=== PATIENT | female | born 1990 | race Asian ===

== ENCOUNTER → 2022-04-09 12:36 | Outpatient (CLI) | payer OTHER, MEDICAID, SELFPAY ==
[2022-04-09 14:13] LABS: HCG Quantitative /Beta subunit 30725 mIU/mL
== END ==
PROVIDERS: Referring Provider Obstetrics & Gynecology; Visit Provider Obstetrics & Gynecology
DX: N91.2 Amenorrhea, unspecified (principal)
CPT/HCPCS: 36415; 84702

== ENCOUNTER → 2022-06-01 13:44 | Outpatient (CLI) | payer OTHER, MEDICAID, SELFPAY ==
[2022-06-01 14:44] LABS: Appearance Urine UA CLEAR; Bilirubin Urine UA NEGATIVE (NEGATIVE); Color Urine UA YELLOW; Glucose Urine UA NEGATIVE (Negative); Ketones Urine UA NEGATIVE (NEGATIVE); Leukocyte Esterase Urine UA NEGATIVE (NEGATIVE); Nitrite Urine UA NEGATIVE (Negative); Occult Blood Urine UA NEGATIVE (Negative); Protein Urine UA NEGATIVE (Negative); Urobilinogen Urine UA 0.2 E.U./dL (0.2)
[2022-06-01 14:45] LABS: pH Urine UA 6.5 (4.5-8.0)
== END ==
PROVIDERS: Visit Provider Obstetrics & Gynecology
DX: Z34.81 Encounter for supervision of other normal pregnancy, first trimester (principal)
CPT/HCPCS: 81003; 87086

== ENCOUNTER → 2022-06-01 14:23 | Outpatient (CLI) | payer OTHER, MEDICAID, SELFPAY ==
[2022-06-01 16:29] LABS: Add Manual Diff / Slide Review NO; Basophils Absolute Auto 100 /uL (0-100); Basophils Percent Auto 0.8 % (0-2); Eosinophils Absolute Auto 100 /uL (0-450); Eosinophils Percent Auto 1.4 % (2-4); Hematocrit 36.4 % (36-46); Hemoglobin 12.4 g/dL (12.0-16.0); Lymphocytes Absolute Auto 800 /uL (1100-4500); Lymphocytes Percent Auto 9.7 % (25-40); Mean Corpuscular Hemoglobin 28.4 PG (26-34); Mean Corpuscular Volume 83.6 fL (80-100); Monocytes Absolute Auto 600 /uL (0-900); Monocytes Percent Auto 6.7 % (3-14); Neutrophils Absolute Auto 7100 /uL (1500-7000); Neutrophils Percent Auto 81.4 % (50-75); Platelet Count 191 X10^3/uL (150-400); Red Blood Cell Count 4.35 X10^6/uL (4.0-5.2); Red Cell Distribution Width 13.7 % (11.6-14.8); White Blood Cell Count 8.7 X10^3/uL (4.5-11.0)
[2022-06-02 06:10] LABS: Varicella IgG Antibody <135 index (Immune >165)
[2022-06-04 16:12] LABS: HIV 1 & 2 Ab/Ag 4th Gen Combo NEGATIVE (NEGATIVE); Hep C Virus Ab w/Reflex Quant NEGATIVE s/c (NEGATIVE); Hepatitis B Surface Antigen NEGATIVE s/c (NEGATIVE); Rubella Antibody IgG 20.6 IU/mL (>15)
[2022-06-18 09:45] LABS: RPR Screen REACTIVE
== END ==
PROVIDERS: Referring Provider Obstetrics & Gynecology; Visit Provider Obstetrics & Gynecology
DX: Z34.81 Encounter for supervision of other normal pregnancy, first trimester (principal)
CPT/HCPCS: 36415; 80055; 81003; 86787; 86803; 86850; 86900; 86901; 87086; 87389

== ENCOUNTER → 2022-06-30 08:45 | Outpatient (CLI) | payer OTHER, MEDICAID, SELFPAY ==
[2022-07-02 19:31] LABS: AFP Value 84.2 ng/mL (.); Gest Age on Col Date 17.6 weeks (.); Insulin Dep Diabetes No (.); OSBR Risk 1IN 987 (.); Results Report (.); Test Results *Screen Negative* (.)
== END ==
PROVIDERS: Referring Provider Obstetrics & Gynecology; Visit Provider Obstetrics & Gynecology
DX: Z34.82 Encounter for supervision of other normal pregnancy, second trimester (principal); Z3A.17 17 weeks gestation of pregnancy
CPT/HCPCS: 36415; 82105

== ENCOUNTER → 2022-07-29 12:03 | Outpatient (CLI) | payer OTHER, MEDICAID, SELFPAY ==
--- NOTE | 2022-07-29 12:04 | DI.US.S_ITS ---
PROCEDURE: US OB >= 14 WEEKS FETUS INDICATIONS: ANATOMY OUTSIDE/PRIOR DATING DATA: Last menstrual period (LMP): 02/27/2022. LMP-based estimated date of delivery (YELITZA): 12/04/2022. First dating scan (date and location): 05/05/2022. Estimated date of delivery (YELITZA) from first dating scan: 12/04/2022. TECHNIQUE: Real-time scanning was performed of the fetus, with image documentation and biometric measurements. Endovaginal scanning: Not performed. COMPARISON: None. FINDINGS: General: A single living intrauterine gestation is present. Presentation: Transverse. Placenta: Placental position is anterior , without previa. Amniotic fluid index: 19.6 cm, normal range is 5-24 cm. Single deepest vertical pocket is 6.5 cm. heart rate: 157 beats per minute. Maternal cervical canal: 3.5 cm long. Normal lower limit is 2.5 cm. biometrics: Biparietal diameter: 5.1 centimeters, 21 weeks 2 days Head circumference: 18.8 centimeters, 21 weeks 1 day Abdominal circumference: 16.7 centimeters, 21 weeks 5 days Femur length: 3.7 centimeters, 21 weeks 5 days estimated gestational age: 21 weeks 5 days Composite gestational age from present scan: 21 weeks 3 days Estimated weight and percentile: 438 grams, 39th percentile Anatomic survey: Neuro: Ventricles are non-dilated at less than 10 mm. Cisterna magna is normal at 3-11 mm. Cerebellum is normal in size and morphology. Nuchal skin fold: Normal at less than 6 mm between 14-21 weeks gestational age. Face: Nose and lips, facial profile are normal. Spine: No evidence for spina bifida. Heart: 4-chambered heart is present, with normal ventricular outflow tracts. Diaphragm: Diaphragm is intact. Stomach: Left-sided stomach is present. Kidneys: No hydronephrosis. Normal is less than 5 mm in 2nd trimester, less than 7 mm in 3rd trimester. Cord: 3-vessel cord has orthotopic insertion. Bladder: Normal in size. Extremities: All 4 extremities identified. IMPRESSION: 1. Single living intrauterine . 2. Normal 2nd trimester anatomy survey. No anomalies detected at this time. We strive to produce accurate, complete, and clear reports of imaging services. To assist us in improving patient care, this report was composed using standard report templates and voice recognition software. Therefore, it may contain abnormal punctuation, insertions and/or omissions. Occasional wrong-word or sound-alike substitutions may occur. Though we review the report and make efforts to correct it, we do recommend that the report be read carefully in proper context to recognize any text inaccuracies. Dictated by: Gerard Blanca M.D. on 07/29/2022 at 16:08 Approved by: Gerard Blanca M.D. on 07/29/2022 at 16:18
== END ==
PROVIDERS: Referring Provider Obstetrics & Gynecology; Visit Provider Obstetrics & Gynecology
DX: Z34.82 Encounter for supervision of other normal pregnancy, second trimester (principal); Z3A.21 21 weeks gestation of pregnancy
CPT/HCPCS: 76811

== ENCOUNTER → 2022-08-31 12:23 | Outpatient (CLI) | payer OTHER, MEDICAID, SELFPAY ==
[2022-08-31 13:57] LABS: Hematocrit 37.3 % (36-46); Hemoglobin 12.3 g/dL (12.0-16.0)
[2022-08-31 14:13] LABS: GTT (PREG) 1 Hour PP 50gm Dose 92 mg/dL (76-139)
== END ==
PROVIDERS: Referring Provider Obstetrics & Gynecology; Visit Provider Obstetrics & Gynecology
DX: Z34.82 Encounter for supervision of other normal pregnancy, second trimester (principal); Z3A.26 26 weeks gestation of pregnancy
CPT/HCPCS: 36415; 82950; 85014; 85018

== ENCOUNTER → 2022-11-17 14:26 | Outpatient (CLI) | payer OTHER, MEDICAID, SELFPAY ==
[2022-11-18 13:42] LABS: Strep Grp B PCR NEG for Grp B Strep
== END ==
PROVIDERS: PCP Family Medicine; Visit Provider Obstetrics & Gynecology
DX: Z34.83 Encounter for supervision of other normal pregnancy, third trimester (principal); Z3A.37 37 weeks gestation of pregnancy
CPT/HCPCS: 87653

== ENCOUNTER 2022-11-26 08:51 | Inpatient (IN) | payer OTHER, MEDICAID, SELFPAY ==
[2022-11-26 09:54] VITALS: BP 143/85
[2022-11-26] MEDS: LACTATED RINGERS 1,000 ML 999 ML IV ×2 (10:20→11:32)
--- NOTE | 2022-11-26 10:24 | P.HPOB_ITS ---
OB HPI Date/Time Date of admission: 11/26/22 Date Patient Seen: 11/26/22 Time Patient Seen: 10:26 History of Present Condition Chief complaint: IUP, 38+6 wks EGA, prior x 1, early labor : 2 Para: 1 Estimated Date of Delivery: 12/04/22 Estimated Gestational Age (weeks): 38+6 Narrative: Precious Schwartz is a 32 year old , YELITZA 12/2022 presenting with regular uterine contractions last evening and early cervical changes consistent with latent phase labor. Patient is currently scheduled for repeat section on 11/29/2022. course has been essentially uneventful with solid dating and appropriate milestones throughout . GBS is negative. Indications Operative indications ( section): previous uterine surgery History of Present care: good care Dating criteria: LMP confirmed by 1st trimester US Ultrasounds: normal 1st trimester US and normal mid trimester US Obstetrical complications: none Medical complications: none Preadmission Labs Blood type: O (+) positive -: Antibody screen: negative, GBS status: negative, HBsAG: negative, HIV: negative and RPR/VDLR: negative -: Chlamydia screen: not detected and Gonorrhea screen: not detected -: Rubella: immune and Varicella: not immune HCT: 37.3 HCAB: negative PAP: Normal Quad screen: Normal 1 hr GTT: 92 Prior (ies) History: CS x 1 Evaluation Evaluation Baseline heart rate: 150 Variability: Average (6-10) monitor accelerations: Present Monitor Decelerations: Absent Contraction Frequency (minutes): 5 Uterine Contraction Intensity: Moderate Status: Category l Dilation (cm): 2 Effacement (%): 80 Dilation: 1-2 cm Effacement: >/=80% station: -2 Position of cervix: mid Consistency: soft Oneill score: 8 PFSH Medical History (Updated 11/17/22 @ 15:00 by Fermin Xiong MD) No active medical problems Surgical History (Updated 09/27/22 @ 15:36 by Belle Brandon MD) Previous section [place] teeth extracted Family History (Updated 04/27/22 @ 09:10 by Rosa Levi RN) Grandmother Diabetes mellitus Social History marital status: number of children: 1 household members: spouse, family (grandparents sometimes come to stay) and children lives independently: Yes housing: house pets and animals: Yes (2 dogs) education level: college (some college in [place]) occupational status: unemployed current occupational exposures/hazards: No special kiki needs: No travel history: over 6 months ago seatbelt use: always water heater temp set < 120 deg: Yes working smoke detector in home: Yes fire extinguisher in home: Yes carbon monox detector in home: Yes firearms in home: No do you feel safe at home: Yes Smoking Status: Never smoker second hand exposure: No alcohol intake: former (not for over a year) substance use type: does not use during the past year weight has: decreased > 10 lbs (intentional w/ diet and exercise) well-balanced diet: daily or most days daily servings fruits/ve-4 caffeine: No Type(s) of exercise: aerobic and weight lifting frequency: 5-6 times per week Meds Home Medications and Allergies Home Medications Medication Instructions Recorded Confirmed Type calcium carbonate 600 mg-vitamin cap PO DAILY 04/27/22 11/17/22 History D3 12.5 mcg (500 unit) capsule (Calcium 600 with Vitamin D3) prenat.vits,pati,awz-[id number]-obxen 1 tab PO DAILY #90 tabs 06/18/22 11/17/22 Rx Allergies Allergy/AdvReac Type Severity Reaction Status Date / Time No Known Allergies Allergy Verified 11/17/22 14:28 Review of Systems Review of Systems Narrative: Problem-specific ROS positives included in HPI OB Exam Vital signs Blood Pressure: 143/85 Pulse Rate: 65 Temperature: 96.3 F HENMT Head: normal to inspection, normocephalic and atraumatic Eyes General: appearance normal, both eyes and all related structures Resp Effort & Inspection: normal respiratory effort and able to speak in complete sen tences Auscultation: clear to auscultation bilaterally Cardio Rate: regular rate Rhythm: regular rhythm Heart Sounds: S1 normal, S2 normal and no murmurs Extremities Lower extremity: Yes normal to inspection GI Inspection: normal to inspection Palpation: Yes soft and Yes no hepatosplenomegaly Uterus Location (Fundal Height): 37 Presentation: vertex Estimated Weight (lbs): 8 Objective Labs 11/26/22 10:20 Assessment and Plan Assessment and Plan Assessment and Plan narrative: ASSESSMENT 1. Intrauterine , 38+6 wks EGA 2. Prior section PLAN 1. Admit for repeat section in labor 2. See admission orders
[2022-11-26 10:36] LABS: Add Manual Diff / Slide Review NO; Basophils Absolute Auto 100 /uL (0-100); Eosinophils Absolute Auto 300 /uL (0-450); Eosinophils Percent Auto 2.6 % (2-4); Hematocrit 39.3 % (36-46); Hemoglobin 12.9 g/dL (12.0-16.0); Lymphocytes Absolute Auto 1900 /uL (1100-4500); Lymphocytes Percent Auto 19.2 % (25-40); Mean Corpuscular HGB Conc 32.7 % (30-36); Mean Corpuscular Hemoglobin 28.3 PG (26-34); Mean Corpuscular Volume 86.5 fL (80-100); Monocytes Absolute Auto 800 /uL (0-900); Monocytes Percent Auto 8.2 % (3-14); Neutrophils Absolute Auto 7000 /uL (1500-7000); Platelet Count 220 X10^3/uL (150-400); Red Blood Cell Count 4.54 X10^6/uL (4.0-5.2); White Blood Cell Count 10.1 X10^3/uL (4.5-11.0)
[2022-11-26] MEDS: CITRIC ACID/SODIUM CITRATE 15 ML SOLUTION 30 ML PO (10:38)
[2022-11-26 10:55] VITALS: BP 143/85; PULSE 65; TEMP 35.7
--- NOTE | 2022-11-26 10:55 | PM.PREOP ---
Pre-operative Note COVID-19 COVID-19 status: Not tested Criteria for continued procedure: Non-surgical alternatives not available or appropriate per current SOC Interval Note History & Physical reviewed/Exam performed by Physician: Yes Changes to H&P: No
[2022-11-26] MEDS: CEFAZOLIN 2 GM/100 ML PREMIX 100 ML IV (11:15)
[2022-11-26] MEDS: ACETAMINOPHEN IV 1,000 MG/100 ML VIAL 400 MG IV (11:20)
--- NOTE | 2022-11-26 11:21 | SUR.OPER ---
Supine on Padded OR bed, head on pillow, safety belt at thigh, arms secured on padded arm boards at <90 degrees abduction. Bump under right buttock. Legs uncrossed with pillow under knees, gel pad to heels, tape over blanket to lower legs. Pt positioned per direction and supervision of Dr Xiong.
--- NOTE | 2022-11-26 11:39 | SUR.OPER ---
Viable baby girl delivered at 1137. Cord blood x2 and placenta given to OB RN.
[2022-11-26 12:25] VITALS: BP 112/62; PULSE 66; RESP 20; TEMP 36.1; O2SAT 96
[2022-11-26 12:30] VITALS: BP 113/60; PULSE 64; RESP 19; O2SAT 97
[2022-11-26 12:38] VITALS: BP 119/79; PULSE 67; RESP 16; TEMP 36.1; O2SAT 97
--- NOTE | 2022-11-26 12:38 | PM.OBCS.1 ---
Operative Date/Time/Diagnoses Date of procedure: 11/26/22 Time of procedure: 11:10 Pre-op diagnosis: Intrauterine gestation, 38+ 6 weeks gestational age Prior section in latent phase labor Post-op diagnosis: same Procedure & Clinicians Procedure: Repeat section, low transverse cervical incision Same procedure as scheduled: Yes Indications: Precious Schwatrz is a 32 year old , YELITZA 12/2022 presenting now at 38+6 weeks EGA with regular uterine contractions since last evening and early cervical changes consistent with latent phase labor.? Patient is currently scheduled for repeat section on 11/29/2022.? course has been essentially uneventful with solid dating and appropriate milestones throughout .? GBS is negative. Surgeon: Fermin Xiong Anesthesia Type: Spinal Operative Notes Findings: Viable female infant, BW 2821 gms. (6 lbs. 3.5 oz.), Apgars 9/9 Closure Type: primary Specimen(s): cord blood Intraoperative meds administered: Ketorolac and Pitocin Applied: Catheter Estimated Blood Loss (mL): 750 Blood products transfused: none Procedure in detail: With her informed written consent, the patient was taken to the operating room and placed in the supine position for a repeat section procedure, for the indication(s) above. The abdomen was prepped and draped in the usual manner for section and a pre-surgical timeout was taken per [facility] OR protocol. Once effective anesthesia was confirmed, a 15 cm transverse Pfannenstiel incision was made in the skin and taken down through the subcutaneous tissues to the deep fascia. The deep fascia was incised transversely, the rectus abdominal eyes bluntly and sharply, and the peritoneal cavity entered without difficulty. The lower uterine segment was visualized and the position/presentation palpated. A transverse incision at or above the vesicouterine reflection was made with Metzenbaum scissors and transverse hysterotomy performed near the midline. Amniotomy revealed lightly meconium stained fluid. The incision was extended bilaterally with digital traction and the infant was delivered easily from the vertex presentation in LOT position. The was vigorous and cord clamping delayed for 60 seconds. The placenta was delivered intact using gentle cord traction and fundal massage.The uterine cavity was then cleared of any clot/debris first with a sloppy wet lap tape followed by a dry lap tape. Ring forceps were then applied to the angles and the midline of the incised DELISA. A primary closure of the uterus was then accomplished with #1 CCGS in a running interlocking stitch followed by a 2nd layer of #1 CCGS in a running interlocking imbricating stitch. An ascending uterine artery suture was required on the left side. No additional sutures was/were required to achieve complete hemostasis. Once pelvic hemostasis was assured, the bladder flap and anterior peritoneum were closed with a running 2-0 Vicryl suture and the fascia closed with #1 Vicryl in a running stitch initiated at both angles and tying separately near the midline. The subcutaneous tissues were reapproximated with 2-0 plain catgut suture using inverted interrupted stitches. The skin edges were then brought together with 4-0 Monocryl in a subcuticular closure and the incision was reinforced with 1 Steri-Strips. An appropriate compression dressing was applied and the patient transferred to PACU for recovery and subsequent transfer to the Center for recuperation. Complications: none [place] Baby 1: Gender: Female Presentation: vertex Position: Transverse (LOT) Placental Delivery Description: Spontaneous and Expressed Cord Vessel Description: 3 Vessels score (1 min): 9 weight: 6 lb 3.508 oz Post-operative Condition: stable Disposition: PACU Aftercare: routine postop
[2022-11-26] MEDS: ONDANSETRON 4 MG/2 ML INJ 8 MG IV (15:34)
[2022-11-26] MEDS: METOCLOPRAMIDE 10 MG/2 ML INJ IV (17:18)
[2022-11-26] MEDS: KETOROLAC 30 MG/ML VIAL IV (18:09)
[2022-11-27] MEDS: KETOROLAC 30 MG/ML VIAL IV ×3 (00:02→11:55)
[2022-11-27] MEDS: ACETAMINOPHEN 325 MG TABLET 650 MG PO ×3 (02:07→13:58)
[2022-11-27] MEDS: OXYCODONE IR 5 MG TABLET PO (06:00)
[2022-11-27 06:47] LABS: Add Manual Diff / Slide Review NO; Basophils Absolute Auto 100 /uL (0-100); Basophils Percent Auto 0.6 % (0-2); Eosinophils Absolute Auto 100 /uL (0-450); Eosinophils Percent Auto 0.8 % (2-4); Hematocrit 34.8 % (36-46); Hemoglobin 11.4 g/dL (12.0-16.0); Lymphocytes Absolute Auto 1800 /uL (1100-4500); Lymphocytes Percent Auto 14.2 % (25-40); Mean Corpuscular HGB Conc 32.8 % (30-36); Mean Corpuscular Hemoglobin 28.4 PG (26-34); Mean Corpuscular Volume 86.6 fL (80-100); Monocytes Absolute Auto 1100 /uL (0-900); Monocytes Percent Auto 8.5 % (3-14); Neutrophils Absolute Auto 9400 /uL (1500-7000); Neutrophils Percent Auto 75.9 % (50-75); Platelet Count 167 X10^3/uL (150-400); Red Blood Cell Count 4.02 X10^6/uL (4.0-5.2); Red Cell Distribution Width 14.2 % (11.6-14.8); White Blood Cell Count 12.4 X10^3/uL (4.5-11.0)
[2022-11-27] MEDS: PRENATAL VIT,CALC/IRON/FOLIC 1 TABLET 1 TAB PO (08:03)
[2022-11-27] MEDS: DOCUSATE 100 MG CAPSULE PO (08:03)
--- NOTE | 2022-11-27 17:55 | P.DS_ITS ---
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 yesterday. Patient is extremely anxious to go home now rather than wait until tomorrow. Her baby's been discharged. Her incision is clean and dry and an Aquacel was placed Peripartum Data Infant Delivery Method: Section Laceration Description: None Episiotomy description: None Procedures: Repeat section complications: none Status at Discharge Cognitive/behavioral status at discharge: oriented Functional status at discharge: independent ambulation Overall status at discharge: patient is progressing back to baseline Time Spent with Patient Time attestation: Total time spent providing and/or coordinating discharge services: Time spent: Greater than 30 minutes Specific discharge activities: Documentation required 30 minutes bedside time with patient 10 minutes Time spent discussing smoking cessation with patient: more than 10 minutes Objective Labs 11/27/22 06:35 Labs: Laboratory Results - last 24 hr 11/27/22 06:35 WBC 12.4 H RBC 4.02 Hgb 11.4 L Hct 34.8 L MCV 86.6 MCH 28.4 MCHC 32.8 RDW 14.2 Plt Count 167 Neut % (Auto) 75.9 H Lymph % (Auto) 14.2 L [place] % (Auto) 8.5 Eos % (Auto) 0.8 L Baso % (Auto) 0.6 Neut # (Auto) 9400 H Lymph # (Auto) 1800 [place] # (Auto) 1100 H Eos # (Auto) 100 Baso # (Auto) 100 Exam Vital Signs (past 8 hours): Oxygen Delivery Method Room Air Const General: cooperative Nutritional Appearance: well nourished Orientation: oriented x3 HENMT Head: normal to inspection Ears: hearing grossly normal bilaterally Nose: external nose normal Face and sinus: normal facial exam Eyes General: appearance normal, both eyes and all related structures Neck Neck: normal visual inspection Resp Effort & Inspection: normal respiratory effort GI Other: Dressing was changed to an Aquacel. Incision was clean and dry with Steri- Strips still attached Neuro General: patient alert and patient oriented x3 Psych Appearance: grossly normal Mental Status: mental status grossly normal Speech and Movement: speech and movement normal Mood: congruent mood Thought Process: normal Thought Content: normal Judgment: judgment good Discharge Plan Discharge Plan Patient Disposition: Home Provider Discharge Comment: Office appointment in 1 week for incision check Discharge orders & Medications Prescriptions: New ibuprofen 600 mg Tablet 600 mg PO Q6H Qty: 30 0RF oxycodone 5 mg Tablet 5 mg PO Q4HR PRN (Reason: Pain, Moderate (4-6)) Qty: 14 0RF Continued prenat.vits,pati,bhc-zucy-owzgz Tablet 1 tab PO DAILY Qty: 90 3RF calcium carbonate-vitamin D3 [Calcium 600 with Vitamin D3] 600 mg-12.5 mcg (500 unit) capsule PO DAILY Follow up/Referrals: Fermin Xiong MD [Physician] - (please call [phone] for a 1 week inci erika check for December 03) Diet/Activity/Treatments Diet: Diet as Tolerated Visit Report/Discharge Packet Instructions: DI for Stand Alone Forms: Discharge: Care, Patient Portal/API, Stroke Signs & Symptoms Discharge Data Primary Care Provider: Corwin Benavidez
[2022-11-27] MEDS: IBUPROFEN 600 MG TABLET PO (18:04)
[2022-11-27] MEDS: LANOLIN OINT 7 GM 1 APPLIC TOP (18:05)
== END 2022-11-27 18:20 | disposition home or self-care (01) | DRG 540 ==
PROVIDERS: Admitting Provider Obstetrics & Gynecology; PCP Family Medicine; Referring Provider Obstetrics & Gynecology; Visit Provider Obstetrics & Gynecology
PROC: 10D00Z1 Extraction of Products of Conception, Low, Open Approach (ICD-10-PCS; CPT 59514; principal; 2022-11-26 10:30)
DX: O34.211 Maternal care for low transverse scar from previous cesarean delivery (principal); Z3A.38 38 weeks gestation of pregnancy; Z37.0 Single live birth
CPT/HCPCS: 36415; 59050; 59514; 85025; 86850; 86900; 86901; G0379; J0131; J0690; J1885; J2274; J2405; J2590; J2704; J2765

== ENCOUNTER → 2022-11-30 16:46 | Outpatient (CLI) | payer OTHER, MEDICAID, SELFPAY ==
[2022-11-30 18:17] LABS: Appearance Urine UA CLEAR; Bilirubin Urine UA NEGATIVE (NEGATIVE); Color Urine UA YELLOW; Glucose Urine UA NEGATIVE (Negative); Ketones Urine UA NEGATIVE (NEGATIVE); Leukocyte Esterase Urine UA NEGATIVE (NEGATIVE); Nitrite Urine UA NEGATIVE (Negative); Occult Blood Urine UA 2+ (Negative); Protein Urine UA NEGATIVE (Negative); Specific Gravity Urine UA 1.015 (1.000-1.035)
[2022-11-30 18:45] LABS: pH Urine UA 6.5 (4.5-8.0)
[2022-11-30 18:50] LABS: Bacteria Urine Occasional (0-1); Culture Indicated Urine Cult Not Indicated; RBC Urine None Seen (0-5/HPF); WBC Urine None Seen (0-5/HPF)
== END ==
PROVIDERS: PCP Family Medicine; Referring Provider Obstetrics & Gynecology; Visit Provider Obstetrics & Gynecology
DX: N39.0 Urinary tract infection, site not specified (principal)
CPT/HCPCS: 81003; 81015